=== PATIENT | male | born 1960 | race Caucasian/White ===

== ENCOUNTER → 2017-01-13 | Outpatient (CLI) | payer MEDICARE ==
[2017-01-13 08:33] VITALS: BP 153/102
[2017-01-13 08:47] LABS: PROTHROMBIN TIME 13.5 SEC (11.4-15.4)
[2017-01-13 08:48] LABS: PARTIAL THROMBOPLASTIN TIME 27.9 SEC (23.5-35.8)
== END ==
LOC: RAD 08:06 → EDSTATUS 13:22
PROVIDERS: ATTEND Family Medicine
DX: M51.16 Intervertebral disc disorders with radiculopathy, lumbar region (principal)
CPT/HCPCS: 36415; 72131; 82962; 85610; 85730

== ENCOUNTER → 2017-01-26 | Outpatient (CLI) | payer MEDICARE | LOC: RAD 15:03 | PROVIDERS: ATTEND Internal Medicine Critical Care Medicine | DX: R91.1 Solitary pulmonary nodule (principal); J45.909 Unspecified asthma, uncomplicated; R91.8 Other nonspecific abnormal finding of lung field; J94.8 Other specified pleural conditions; Z87.891 Personal history of nicotine dependence; F51.8 Other sleep disorders not due to a substance or known physiological condition; G47.30 Sleep apnea, unspecified; R53.82 Chronic fatigue, unspecified; G47.10 Hypersomnia, unspecified; R06.83 Snoring | CPT/HCPCS: 71250 ==

== ENCOUNTER → 2017-02-13 | Outpatient (CLI) | payer MEDICARE | LOC: RAD 18:50 | PROVIDERS: ATTEND Orthopaedic Surgery | DX: M54.17 Radiculopathy, lumbosacral region (principal) | CPT/HCPCS: 82565; 72158; A9577 ==

== ENCOUNTER → 2017-04-27 | Outpatient (CLI) | payer MEDICARE ==
--- NOTE | 2017-04-27 15:46 | RADIOLOGY REPORT (SQ) ---
EXAM DESCRIPTION: NM HIDA SCAN WITH CCK COMPLETED DATE/TIME: 04/27/2017 3:26 pm REASON FOR STUDY: RUQ PAIN (R10.11), ABN LFT (R94.5) R94.5 ABNORMAL RESULTS OF LIVER FUNCTION STUDI ES COMPARISON: None. RADIONUCLIDE AND DOSE: DOSAGE RADIONUCLIDE: 5.24 millicuries Tc99m Mebrofenin. DOSAGE CCK: 2.5 micrograms. DOSAGE MORPHINE: Not required. The route of agent administration: Intravenous TECHNIQUE: Serial imaging right upper quadrant up to 60 minutes following injection of radionuclide. CCK injected after gallbladder visualized. LIMITATIONS: None. FINDINGS: LIVER: Normal visualization without areas of photopenia. INTRA AND EXTRAHEPATIC BILE DUCTS: Normal accumulation of activity. GALLBLADDER: Normal visualization. Calculated Ejection Fraction of 22.19%. Below the normal value of 35% or greater. PHYSICAL RESPONSE: Patients presenting complaint was reproduced. OTHER: No other significant finding. IMPRESSION: LOW GALLBLADDER EJECTION FRACTION. EVIDENCE FOR BILIARY DYSKINESIS. NO CYSTIC OR COMMO N DUCT OBSTRUCTION. TECHNICAL DOCUMENTATION: JOB ID: [id number]- All Rights Reserved
== END ==
LOC: RAD 12:50
PROVIDERS: ATTEND Obstetrics & Gynecology
DX: R94.5 Abnormal results of liver function studies (principal); R10.11 Right upper quadrant pain
CPT/HCPCS: 78227; A9537; Q9969; J2805